=== PATIENT | female | born 1960 | race American Indian/Alaskan Native ===

== ENCOUNTER 2016-08-23 08:22 | Emergency (ER) | payer BC ==
[2016-08-23 08:49] VITALS: BP 187/99
--- NOTE | 2016-08-23 11:36 | Emergency Department Report ---
ED General Adult HPI - General Chief complaint: High BP Stated complaint: HIGH BP Source: patient Mode of arrival: Ambulatory Limitations: No Limitations - History of Present Illness Initial comments: 56-year-old female comes in for complaint of elevated blood pressure for 1 week. Patient reports that she's been out of her medication and that she's tried calling her primary care provider they would not see her secondary her Owning a balance on her account. Patient reports that she just has a slight headache no change in vision no nausea no vomiting - Related Data Previous Rx's Medication Instructions Recorded Last Taken Type Chlorthalidone [Thalitone] 25 mg PO QDAY #90 tablet 08/23/16 Unknown Rx Allergies Allergy/AdvReac Type Severity Reaction Status Date / Time No Known Allergies Allergy Unverified 08/23/16 08:47 ED Review of Systems ROS: Stated complaint: HIGH BP Other details as noted in HPI Comment: All other systems reviewed and negative Neurological: headache (slight headache) ED Past Medical Hx - Past Medical History Hx Hypertension: Yes - Surgical History Past Surgical History?: No - Social History Smoking Status: Current Every Day Smoker Substance Use Type: Alcohol - Medications Home Medications: Home Medications Medication Instructions Recorded Confirmed Last Taken Type Chlorthalidone [Thalitone] 25 mg PO QDAY #90 tablet 08/23/16 Unknown Rx ED Physical Exam - General Limitations: No Limitations General appearance: alert, in no apparent distress - Head Head exam: Present: atraumatic, normocephalic - Eye Eye exam: Present: normal appearance, PERRL, EOMI Pupils: Present: normal accommodation - ENT ENT exam: Present: mucous membranes moist - Respiratory Respiratory exam: Present: normal lung sounds bilaterally - Cardiovascular Cardiovascular Exam: Present: regular rate, normal rhythm, normal heart sounds - Extremities Exam Extremities exam: Absent: pedal edema - Neurological Exam Neurological exam: Present: normal gait - Expanded Neurological Exam Expanded Cranial nerves: EOM's Intact: Normal, Gag Reflex: Normal, Tongue Deviation: Normal - Skin Skin exam: Present: warm, dry, intact ED Course Vital Signs 08/23/16 08:47 Temperature 98.1 F Pulse Rate 60 Respiratory 16 Rate Blood Pressure 187/99 O2 Sat by Pulse 99 Oximetry ED Medical Decision Making - Medical Decision Making Patient's been evaluated by this provider in fast track. We were refilled her chlorothiazide 25 mg by mouth. Her common patient to follow up with the primary care provider. Critical care attestation.: If time is entered above; I have spent that time in minutes in the direct care of this critically ill patient, excluding procedure time. ED Disposition Clinical Impression: HTN, goal below 130/80 Disposition: DISCHARGED TO HOME OR SELFCARE Is pt being admited?: No Does the pt Need Aspirin: No Instructions: Hypertension (ED) Additional Instructions: Experience importantly to follow up with primary care provider we will refer you to another primary care provider for further evaluation. Prescriptions: Chlorthalidone [Thalitone] 25 mg PO QDAY #90 tablet Referrals: PRIMARY CARE, [Primary Care Provider] - 3-5 Days CINDY BROWN MD [Staff Physician] - 3-5 Days Forms: Work/School Release Form(ED)
== END 2016-08-23 11:50 | disposition home or self-care (01) ==
LOC: ED 08:22
DX: I10 Essential (primary) hypertension (principal); F17.200 Nicotine dependence, unspecified, uncomplicated
CPT/HCPCS: 99282

== ENCOUNTER 2017-05-06 05:37 | Emergency (ER) | payer BC ==
[2017-05-06 05:45] VITALS: BP 194/104
[2017-05-06] MEDS ORDERED: CATAPRES ONE (05:53)
[2017-05-06 06:04] LABS: Basophils % (Auto) 0.6 % (0.0-1.8); Eosinophils % (Auto) 0.9 % (0.0-4.3); Hematocrit 44.3 % (30.3-42.9); Hemoglobin 14.2 gm/dl (10.1-14.3); Mean Corpuscular HGB Conc 32 % (30-34); Mean Corpuscular Hemoglobin 27 pg (28-32); Mean Corpuscular Volume 84 fl (79-97); Platelet Count 246 K/mm3 (140-440); Red Blood Count 5.26 M/mm3 (3.65-5.03); Red Cell Distribution Width 14.4 % (13.2-15.2); White Blood Count 7.6 K/mm3 (4.5-11.0)
[2017-05-06 06:24] LABS: Anion Gap 19 mmol/L; BUN/Creatinine Ratio 23; Blood Urea Nitrogen 9 mg/dL (7-17); Calcium 9.5 mg/dL (8.4-10.2); Carbon Dioxide 25 mmol/L (22-30); Chloride 104.9 mmol/L (98-107); Glucose 103 mg/dL (65-100); Potassium 3.7 mmol/L (3.6-5.0); Sodium 145 mmol/L (137-145)
== END 2017-05-06 05:49 | disposition left against medical advice (07) ==
LOC: ED 05:37
DX: R07.9 Chest pain, unspecified (principal); Z53.21 Procedure and treatment not carried out due to patient leaving prior to being seen by health care provider
CPT/HCPCS: 36415; 80048; 84484; 85025; 93005; 93010